=== PATIENT | male | born 1965 | race Caucasian/White ===

== ENCOUNTER 2017-03-28 07:29 | Inpatient (IN) | payer OTHER, BC ==
[2017-03-27 17:45] VITALS: BMI 38.9
[2017-03-28] MEDS ORDERED: ceFAZolin SODIUM 1 GM VIAL ONE ×2 (09:15→11:44)
[2017-03-28] MEDS ORDERED: TAMSULOSIN HCL 0.4 MG CAP.ER.24H (FP) ONE (09:15)
[2017-03-28] MEDS ORDERED: fentaNYL CITRATE 250 MCG/5 ML VIAL ONE (11:02)
[2017-03-28] MEDS ORDERED: LIDOCAINE HCL/PF 2% SDV 5ML VIAL ONE (11:02)
[2017-03-28] MEDS ORDERED: MIDAZOLAM HCL 2 MG/2 ML SINGLE DOSE VIAL ONE (11:03)
[2017-03-28] MEDS ORDERED: PROPOFOL 20 ML ONE ×2 (11:03)
[2017-03-28] MEDS ORDERED: ROCURONIUM BROMIDE 50 MG/5 ML VIAL ONE ×2 (11:03→12:12)
[2017-03-28] MEDS ORDERED: ceFAZolin SODIUM 1 GM VIAL IVPB ONE ×2 (11:45→11:50)
[2017-03-28] MEDS ORDERED: DEXAMETHASONE SOD PHOSPHATE 4 MG/1 ML VIAL ONE (12:04)
[2017-03-28] MEDS ORDERED: GLYCOPYRROLATE 0.2 MG/1 ML VIAL ONE (12:32)
[2017-03-28] MEDS ORDERED: ONDANSETRON 4 MG/2 ML VIAL IVPUSH PRN ×3 (12:33→13:10)
[2017-03-28] MEDS ORDERED: NEOSTIGMINE METHYLSULFATE 0.5 MG/ML - 10 ML MDV ONE (12:33)
[2017-03-28] MEDS ORDERED: oxyCODONE HCL 5 MG TABLET PO PRN ×2 (12:33→12:54)
[2017-03-28] MEDS ORDERED: LACTATED RINGERS SOLUTION 1,000 ML IV SCH ×2 (12:45→13:15)
[2017-03-28] MEDS ORDERED: ACETAMINOPHEN 325 MG TABLET (FP) PO PRN (12:54)
[2017-03-28] MEDS ORDERED: morphine CARPU-JECT 10 MG/1 ML DISP.SYRIN IVPB PRN (12:54)
[2017-03-28] MEDS ORDERED: PROMETHAZINE HCL 25 MG/1 ML VIAL IVPUSH PRN (13:10)
[2017-03-28] MEDS: D5-1/2NS+20 MEQ KCL - 20 MEQ/1,000 ML INFUS.BAG IV SCH (14:40)
--- NOTE | 2017-03-28 18:04 | OP ---
DATE OF OPERATION: 03/28/2017 PREOPERATIVE DIAGNOSIS: Chronically incarcerated ventral hernia. POSTOPERATIVE DIAGNOSIS: Chronically incarcerated ventral hernia. PROCEDURE: Open bilateral component separation, repair of complex, chronically incarcerated ventral hernia with mesh. SURGEON: Zhao Storey M.D. CASE MANAGER SPECIALIST: Mango Villalobos D.O. ANESTHESIOLOGIST: Freedom Pryor M.D. ANESTHESIA: General. ESTIMATED BLOOD LOSS: Minimal. SPECIMEN: None. INDICATION FOR PROCEDURE: This is a 51-year-old gentleman who developed sharp pain in the mid abdomen after December 15 event where he was lifting a inspector floor upstairs. Following that he also noted a lump in his abdomen and it is painful. He is now here for operative repair. DESCRIPTION OF PROCEDURE: Patient is identified, and appropriately positioned on operating room table. He is placed on general anesthesia and prepped and draped in the usual sterile fashion with Chloraprep. A midline incision was made overlying the mass and deepened through the subcutaneous tissue. The mass dissected down to the level of the fascia and off the dermis of the skin. It was then circumferentially isolated at the fascial level. He clearly had a large defect, and the fascia around the defect was markedly frayed. The frayed tissue was then sharply excised and back to normal good tissue. The defect left was generous, and therefore the patient could not undergo a primary closure with mesh and required bilateral component separation to allow a tension-free closure. The rectus sheath on the right side was identified. The posterior sheath was incised, the muscles off bluntly from the posterior sheath with gentle blunt dissection. This was taken out laterally to the level of the perforating vessels. At this level, the fascia was then subsequently divided with the cautery just medial to the perforating vessels, and the transversus was from the rest of the obliques as well as the rectus. This myofascial separation continued longitudinally for approximately 4-5 inches above and below the actual defect. Once the right side was developed, a similar technique was used for the left side. On the left side, the retrorectus space entered and identified by dividing the posterior rectus sheath. The space was then bluntly developed out laterally and at the level of the perforating vessels the fascia just medial to the perforating vessels was divided with the cautery, and the transversus was released and from the obliques as well as the rectus. This was taken approximately 4-5 inches above and below the defect as well. Next, the transversus was then reapproximated in the midline with a running 3-0 Vicryl suture. The defect measured and a large 15 x 15 Progrip along with a 6 x 11 Telabio mesh was used for the operative repair. The two pieces of mesh were sewn together with grippy side toward the rectus. The Telabio mesh was placed directly over the suture line of the transversus closure. The mesh placed into a retrorectus location, and then anchored with interrupted Reliatack anchors. The mesh itself was then irrigated, the operative field examined and noted to be hemostatic. The fascia in the midline reapproximated with interrupted, inverted 0 PDS sutures. The suturing technique was used was placed 5 mm away from the edge and 5 mm from each suture. The subcutaneous space irrigated, no flaps were created for this procedure, and therefore we did not place a drain. The skin was closed with riri followed by Dermabond. At the conclusion of the case, sponge and needle counts were correct. ATTESTATION: Brief operative note handwritten on the preprinted form. [facility] will be queried prior to giving any narcotics. Susan MAY [id number] cc: Dr. Claudia Guillen [facility]UN[facility] CAMPUSFlaquita
[2017-03-29] MEDS: D5-1/2NS+20 MEQ KCL - 20 MEQ/1,000 ML INFUS.BAG IV SCH (01:04)
[2017-03-29] MEDS ORDERED: ENOXAPARIN NA (PORCINE) 40 MG/0.4 ML DISP.SYRIN SQ SCH (10:00)
[2017-03-29] MEDS ORDERED: PANTOPRAZOLE SODIUM 40 MG VIAL IVPUSH SCH (10:00)
[2017-03-29] MEDS ORDERED: PATIENT'S OWN MEDICATION (NON-FORMULARY) (Amlodipine Bes/Olmesartan Med [Azor 10-40 Mg Tab PO SCH (10:00)
[2017-03-29] MEDS ORDERED: amLODIPine BESYLATE 10 MG TABLET (FP) PO SCH (10:00)
[2017-03-29] MEDS ORDERED: VALSARTAN 160 MG TABLET (UD) PO SCH (10:00)
--- NOTE | 2017-03-29 11:10 | DS ---
DATE OF ADMISSION: 03/28/2017 DATE OF DISCHARGE: 03/29/2017 ADMITTING DIAGNOSIS: Complex incarcerated incisional hernia with pre-existing hypertension. DISCHARGE DIAGNOSIS: Complex incarcerated incisional hernia with pre-existing hypertension. BRIEF HISTORY: This is a 51-year-old male who presented to [facility] for surgical management of a complex incarcerated ventral/incisional hernia. He underwent repair of this hernia utilizing mesh, component separation, myofascial release, and abdominal wall reconstruction. Please reference Dr. Zhao Storey's operative report for further details. Patient is being discharged home today, March 29, tolerating diet and voiding. He is ambulating without difficulty. He will go home with a new prescription for Percocet as needed. He will resume his usual hypertensive medications. He will follow with Dr. Storey in approximately 2 weeks' time. He is okay to shower, okay to drive. He will not lift anything more than 20 pounds, and he is on a regular diet. DO MIGUEL ÁNGEL PADILLA/[id number]
[2017-03-29 11:23] VITALS: BP 131/79; PULSE 65; TEMP 98.9
== END 2017-03-29 11:10 | disposition home or self-care (01) | DRG 227 ==
LOC: JASUSAT 07:29 → JSAMEDAYSX 12:54 → J6S 15:15
PROVIDERS: ADMIT Surgery; ATTEND Surgery
PROC: 0WUF0JZ Supplement Abdominal Wall with Synthetic Substitute, Open Approach (ICD-10-PCS; principal; 2017-03-28 10:00)
DX: K43.6 Other and unspecified ventral hernia with obstruction, without gangrene (principal); I10 Essential (primary) hypertension
CPT/HCPCS: 94760

== ENCOUNTER 2018-12-19 10:08 | Emergency (ER) | payer OTHER, BC ==
[2018-12-19 10:18] VITALS: BP 126/64; PULSE 54; TEMP 98.7; BMI 31.7
[2018-12-19] MEDS ORDERED: NAPROXEN 500 MG TABLET (FP) PO ONE (11:20)
--- NOTE | 2018-12-19 11:26 | PDOC ---
History of Present Illness - General Chief Complaint: Head/Neck problem Stated Complaint: INJURY TO HEAD Time Seen by Provider: 12/19/18 10:50 History Source: Patient Exam Limitations: Clinical Condition - History of Present Illness Initial Comments: 12/19/18 11:21 Patient with no significant past medical history present with complaint of left- sided neck pain status post slip and fall yesterday morning hitting back of head on a wooden floor. Patient denies headache, blurry vision, change in vision , nausea or vomiting. Patient reported only have pain to lateral aspect of the neck which he believes from spasm. Denies loss of consciousness or syncopal episode. Denies unsteady gait, dizziness or lightheadedness. Denies any other symptoms Occurred: reports: yesterday Past History - Past Medical History Allergies/Adverse Reactions: Allergies Allergy/AdvReac Type Severity Reaction Status Date / Time levofloxacin [From Levaquin] Allergy PALPITATION Verified 12/19/18 10:15 S Home Medications: Ambulatory Orders Oxycodone HCl/Acetaminophen [Percocet 5-325 mg Tablet] 1 tab PO Q4H PRN #42 tablet MDD 6 03/28/17 Amlodipine Besylate [Norvasc -] 10 mg PO DAILY tablet 03/29/17 Valsartan [Diovan] 320 mg PO DAILY tablet 03/29/17 Methocarbamol [Robaxin -] 500 mg PO BID PRN #14 tablet 12/19/18 Methylprednisolone [Medrol Dose Sim] 4 mg PO ASDIR #21 tablet 12/19/18 COPD: No Diabetes: No GI Disorders: Yes (REFLUX) HTN: Yes Thyroid Disease: No - Surgical History Abdominal Surgery: Yes (HERNIA) Orthopedic Surgery: Yes (KNEE SCOPE) - Immunization History Td Vaccination: No TDAP Vaccination: No Immunization Up to Date: No - Suicide/Smoking/Psychosocial Hx Smoking Status: No Smoking History: Never smoked Have you smoked in the past 12 months: No Number of Cigarettes Smoked Daily: 0 If you are a former smoker, when did you quit?: 18 YRS Hx Alcohol Use: No Drug/Substance Use Hx: No Substance Use Type: Alcohol Review of Systems - Review of Systems Able to Perform ROS?: Yes Is the patient limited Latvian proficient: No Constitutional: No: Malaise, Weakness HEENTM: No: Symptoms Reported, See HPI, Eye Pain, Blurred Vision, Tearing, Recent change in vision, Double Vision, Cataracts, Ear Pain, Ocular Prothesis, Ear Discharge, Nose Pain, Nose Congestion, Tinnitus, Nose Bleeding, Hearing Loss , Throat Pain, Throat Swelling, Mouth Pain, Dental Problems, Difficulty Swallowing, Mouth Swelling, Other Respiratory: No: Symptoms reported, See HPI, Cough, Orthopnea, Shortness of Breath, SOB with Exertion, SOB at Rest, Stridor, Wheezing, Productive cough, Hemoptysis, Other Cardiac (ROS): No: Symptoms Reported, See HPI, Chest Pain, Edema, Irregular Heart Rate, Lightheadedness, Palpitations, Syncope, Chest Tightness, Other ABD/GI: No: Nausea, Vomiting Musculoskeletal: Yes: Symptoms Reported, See HPI, Muscle Pain (left side neck pain), Neck Pain (left side neck). No: Joint Stiffness Integumentary: No: Symptoms Reported Neurological: Yes: See HPI. No: Symptoms reported, Headache, Numbness, Paresthesia, Tingling, Weakness, Unsteady Gait, Ataxia, Dizziness All Other Systems: Reviewed and Negative *Physical Exam - Vital Signs Last Vital Signs Temp Pulse Resp BP Pulse Ox 98.7 F 54 L 18 126/64 99 12/19/18 10:15 12/19/18 10:15 12/19/18 10:15 12/19/18 10:15 12/19/18 10:15 - Physical Exam Comments: 12/19/18 11:30 GENERAL: Well developed, well nourished. Awake and alert. No acute distress. CARDIOVASCULAR: Regular rate and rhythm. No murmurs, rubs, or gallops. PULMONARY: No evidence of respiratory distress. Lungs clear to auscultation bilaterally. No wheezing, rales or rhonchi. ABDOMINAL: Soft. Non-tender. Non-distended. No rebound or guarding. No organomegaly. Normoactive bowel sounds MUSCULOSKELETAL : mild tenderness over left lateral paracervical muscle C2-C4. Free range of motion of cervical spine. No bony deformities EXTREMITIES: No cyanosis. No clubbing. No edema. SKIN: Warm and dry. Normal capillary refill. No rashes. No jaundice. NEUROLOGICAL: Alert, awake, appropriate. No motor deficits in the lower extremities. Normal tandem walking. Extraocular muscle intact. Pupil equal and refracted to light bilateral. Gait is normal without ataxia. PSYCHIATRIC: Cooperative. Good eye contact. Appropriate mood and affect. General Appearance: Yes: Nourished, Appropriately Dressed. No: Apparent Distress Medical Decision Making - Medical Decision Making 12/19/18 11:23 Patient with no significant past medical history present with complaint of left- sided neck pain status post slip and fall yesterday morning hitting back of head on a wooden floor. Patient denies headache, blurry vision, change in vision , nausea or vomiting. Patient reported only have pain to lateral aspect of the neck which he believes from spasm. Denies loss of consciousness or syncopal episode. Denies unsteady gait, dizziness or lightheadedness. Denies any other symptoms. Clinical exam significant for mild tenderness to left paracervical muscle C2-C4 otherwise unremarkable exam. Normal neuro exam. Free range of motion of cervical spine. Patient ambulating with normal gait. Symptoms likely neck spasm from fall. It has been over 24 hours and patient has no neuro symptoms or headaches which makes intracranial bleeding unlikely. Willll hold off on head CT. Naproxen 500 mg by mouth ordered for pain. Patient be discharged home on medrol-sim when necessary and Robaxin for pain and spasm with strict follow-up. *DC/Admit/Observation/Transfer Diagnosis at time of Disposition: Head contusion Qualifiers: Encounter type: initial encounter Contusion of head detail: scalp Qualified Code(s): S00.03XA - Contusion of scalp, initial encounter Neck muscle strain Qualifiers: Encounter type: initial encounter Qualified Code(s): S16.1XXA - Strain of muscle, fascia and tendon at neck level, initial encounter - Discharge Dispostion Disposition: HOME Condition at time of disposition: Stable Decision to Admit order: No - Prescriptions Prescriptions: Methocarbamol [Robaxin -] 500 mg PO BID PRN #14 tablet PRN Reason: neck spasm Methylprednisolone [Medrol Dose Sim] 4 mg PO ASDIR #21 tablet - Referrals Referrals: Jose J Herrera MD, [facility] [Staff Physician] - - Patient Instructions Printed Discharge Instructions: DI for Concussion, DI for Closed Head Injury Additional Instructions: Take prescribed medication as prescribed for pain and spasm .apply warm compresses to neck area as needed for pain. Come back to emergency room if severe headache, nausea with vomiting, blurry vision or change in vision. - Post Discharge Activity
[2018-12-19] MEDS ORDERED: NAPROXEN 500 MG TABLET (FP) ONE (11:28)
== END 2018-12-19 11:32 | disposition home or self-care (01) ==
LOC: JERFT 10:08
DX: S16.1XXA Strain of muscle, fascia and tendon at neck level, initial encounter (principal); S00.03XA Contusion of scalp, initial encounter; W01.198A Fall on same level from slipping, tripping and stumbling with subsequent striking against other object, initial encounter; Y93.89 Activity, other specified; Y92.89 Other specified places as the place of occurrence of the external cause; Y99.8 Other external cause status
CPT/HCPCS: 99282-25

== ENCOUNTER 2021-01-19 15:13 | Emergency (ER) | payer BC ==
[2021-01-19 15:48] VITALS: BP 147/76; PULSE 58; TEMP 98.7; BMI 30.1
== END 2021-01-19 18:19 | disposition home or self-care (01) ==
LOC: JER 15:13
DX: S09.90XA Unspecified injury of head, initial encounter (principal); W01.0XXA Fall on same level from slipping, tripping and stumbling without subsequent striking against object, initial encounter
CPT/HCPCS: 70450-TC; 99284-25